=== PATIENT | male | born 1960 | race Caucasian/White ===

== ENCOUNTER 2022-06-30 17:37 | Emergency (ER) | payer OTHER ==
[2022-06-30] MEDS ORDERED: Morphine 2 MG/ML SYRINGE IVPUSH ONE ×2 (17:41→18:28)
[2022-06-30] MEDS ORDERED: Sodium Chloride 0.9% 10 ML Syringe FLUSH PRN (17:41)
[2022-06-30] MEDS ORDERED: Lactated Ringers 1,000 ML IV SCH (17:45)
[2022-06-30] MEDS ORDERED: Ondansetron 4 MG/2 ML SDV IVPUSH ONE (17:56)
[2022-06-30 18:11] LABS: CHLORIDE,CL 104 mmol/L (98-107); SODIUM,NA 142 mmol/L (136-145)
[2022-06-30 18:12] LABS: ESTIMATED GFR 56 mL/min (>=60)
[2022-06-30] MEDS ORDERED: Diphtheria,Pertussis(Acell),Tetanus Vaccine 0.5 ML Syringe IM ONE (20:01)
[2022-06-30] MEDS ORDERED: Lidocaine 1% 5 ML VIAL INJECT ONE (20:07)
[2022-06-30] MEDS ORDERED: Bacitracin/Neomycin/Polymyxin B Oint 0.9 GM U/D Packet TOP ONE (20:08)
== END 2022-06-30 20:45 | disposition home or self-care (01) ==
LOC: LL.ED 17:37
DX: S06.0X1A Concussion with loss of consciousness of 30 minutes or less, initial encounter (principal); R79.89 Other specified abnormal findings of blood chemistry; I16.0 Hypertensive urgency; I10 Essential (primary) hypertension; Z23 Encounter for immunization; Z79.899 Other long term (current) drug therapy; W17.89XA Other fall from one level to another, initial encounter; Y99.0 Civilian activity done for income or pay
CPT/HCPCS: 12001; 36415; 70450; 72125; 80053; 85025; 90471; 90715; 96361; 96374; 96375; 96376; 99284; J2270; J2405; J7120